=== PATIENT | male | born 1935 | race African-American/Black ===

== ENCOUNTER → 2017-04-01 | Outpatient (CLI) | payer MEDICARE, MEDICAID ==
[~2017-04-01] MED LIST: AMLO10TA80 PO; AMLO5TAB88 PO; ASPI-1159 PO; BARIUM SULFATE 450ML ORAL SUSP ONE; BICA50TA2 PO; CARI350T PO; CLON0.1T PO; FERR-63 PO; FURO20TA4 PO; LORA-249 PO; LOSA25TA12 PO; LOSA50TA20 PO; NORT50CA PO; OMEP20TA2 PO; ONDA4TAB51 PO; OXYC30TA89 PO; SPIR1TAB4 PO; TEMA30CA PO
== END | disposition home or self-care (01) ==
LOC: CT 08:33
PROVIDERS: ATTEND Internal Medicine Hematology & Oncology
DX: C18.2 Malignant neoplasm of ascending colon (principal); C61 Malignant neoplasm of prostate
CPT/HCPCS: 74176

== ENCOUNTER 2017-05-21 16:42 | Inpatient (IN) | payer MEDICARE, MEDICAID ==
[~2017-05-21] VITALS: Ht 167.6 cm; Wt 51.0 kg
[~2017-05-21 16:42] MED LIST changes: -AMLO10TA80 PO; -BARIUM SULFATE 450ML ORAL SUSP ONE; -LOSA50TA20 PO; -SPIR1TAB4 PO
[2017-05-21 19:47] LABS: MEAN CORPUSCULAR HEMOGLOBIN 34.3 pg (28.0-32.0); MEAN CORPUSCULAR VOLUME 102.5 fL (80.0-94.0); MEAN PLATELET VOLUME 7.2 fl (7.4-10.4); PLATELET 221 x1000/uL (130-400); RED BLOOD CELL COUNT 2.05 mill/uL (4.7-6.1); RED CELL DISTRIBUTION WIDTH 13.5 % (11.6-14.6)
[2017-05-21 19:54] LABS: INR 1.1; PROTHROMBIN TIME 11.4 sec (9.4-11.6)
[2017-05-21 20:03] LABS: CARBON DIOXIDE 25 mEq/L (21-32); CHLORIDE 103 mEq/L (98-107); CREATINE KINASE 341 IU/L (39-308); TROPONIN I < 0.02 ng/mL (0.00-0.04)
[2017-05-21 20:04] LABS: CREATINE KINASE MB FRACTION 3.4 ng/mL (0.5-3.6)
[2017-05-21 20:10] LABS: PLATELET ESTIMATE NORMAL
[2017-05-22] VITALS (14 sets, daily range): BP systolic 102–128; BP diastolic 40–56
[2017-05-22] MEDS ORDERED: LOSA50TA20 PO (03:23)
[2017-05-22] MEDS ORDERED: SPIR1TAB4 PO (03:23)
[2017-05-22] MEDS ORDERED: AMLO10TA80 PO (03:23)
[2017-05-22] MEDS ORDERED: DIPHENHYDRAMINE 50MG/ML VIAL IV PRN (03:30)
[2017-05-22] MEDS ORDERED: CLONIDINE 0.1MG TABLET PO PRN (03:30)
[2017-05-22] MEDS ORDERED: IPRATROPIUM/ALBUTEROL 0.5-3(2.5)MG/3ML NEB INH PRN (03:30)
[2017-05-22] MEDS ORDERED: MAGNESIUM/ALUMINUM HYDROXIDE/SIMETHICONE 30ML UDC PO PRN (03:30)
[2017-05-22] MEDS ORDERED: ACETAMINOPHEN 325MG TABLET PO PRN (03:30)
[2017-05-22] MEDS: OXYCODONE HCL 5MG TABLET PO PRN ×2 (04:12→17:29)
[2017-05-22 04:13] LABS: TOTAL IRON BINDING CAPACITY 294 ug/dL (250-450)
[2017-05-22] MEDS: ONDANSETRON HCL 4MG/2ML VIAL IV PRN ×2 (04:14→17:28)
[2017-05-22] MEDS: SODIUM CHLORIDE 0.9% INJ 3ML FLUSH IVF SCH ×3 (04:15→21:02)
[2017-05-22] MEDS: PANTOPRAZOLE SODIUM 40 MG/VIAL IV SCH (09:30)
[2017-05-22] MEDS: CARISOPRODOL 350 MG TABLET PO SCH (09:30)
[2017-05-22 11:39] LABS: HEMATOCRIT 21.9 % (42.0-52.0); HEMOGLOBIN 7.5 g/dL (14.0-18.0)
[2017-05-22] MEDS: BUDESONIDE 0.5MG/2ML NEB HHN SCH (20:12)
[2017-05-22] MEDS: IPRATROPIUM/ALBUTEROL 0.5-3(2.5)MG/3ML NEB HHN SCH (20:12)
[2017-05-22 23:41] LABS: HEMATOCRIT 28.8 % (42.0-52.0); HEMOGLOBIN 9.9 g/dL (14.0-18.0)
[2017-05-23] VITALS: BP 116/56
[2017-05-23] MEDS: IPRATROPIUM/ALBUTEROL 0.5-3(2.5)MG/3ML NEB HHN SCH ×3 (02:48→15:12)
[2017-05-23 04:00] VITALS: BP 117/48
[2017-05-23] MEDS: SODIUM CHLORIDE 0.9% INJ 3ML FLUSH IVF SCH (05:34)
[2017-05-23 08:00] VITALS: BP 137/54
[2017-05-23] MEDS: CARISOPRODOL 350 MG TABLET PO SCH (09:00)
[2017-05-23] MEDS: PANTOPRAZOLE SODIUM 40 MG/VIAL IV SCH (09:06)
[2017-05-23] MEDS: BUDESONIDE 0.5MG/2ML NEB HHN SCH (09:31)
[2017-05-23 12:00] VITALS: BP 109/46
[2017-05-23 12:56] VITALS: BP 109/56
[2017-05-23 14:00] VITALS: BP 117/67
[2017-05-24] MEDS ORDERED: FAMOTIDINE 20MG TABLET PO SCH (09:00)
== END 2017-05-23 16:30 | disposition hospice, home (50) | DRG 180 ==
LOC: ER 16:42 → 7WST 05-22 01:03 → EDBEDREQ 05-22 01:12 → EDBEDREQTM 05-22 01:12 → ENRESERV 05-22 01:19 → 7WST 05-22 03:13
PROVIDERS: ADMIT Internal Medicine; ATTEND Internal Medicine
PROC: 30233N1 Transfusion of Nonautologous Red Blood Cells into Peripheral Vein, Percutaneous Approach (ICD-10-PCS; principal; 2017-05-22)
DX: C78.00 Secondary malignant neoplasm of unspecified lung (principal); J96.01 Acute respiratory failure with hypoxia; N17.9 Acute kidney failure, unspecified; C79.11 Secondary malignant neoplasm of bladder; C79.51 Secondary malignant neoplasm of bone; D50.9 Iron deficiency anemia, unspecified; F17.200 Nicotine dependence, unspecified, uncomplicated; J44.1 Chronic obstructive pulmonary disease with (acute) exacerbation; Z99.81 Dependence on supplemental oxygen; K21.9 Gastro-esophageal reflux disease without esophagitis; E78.00 Pure hypercholesterolemia, unspecified; E78.5 Hyperlipidemia, unspecified; G89.4 Chronic pain syndrome; N18.9 Chronic kidney disease, unspecified; C61 Malignant neoplasm of prostate; I12.9 Hypertensive chronic kidney disease with stage 1 through stage 4 chronic kidney disease, or unspecified chronic kidney disease; N40.0 Benign prostatic hyperplasia without lower urinary tract symptoms; Z66 Do not resuscitate; Z93.3 Colostomy status; Z79.899 Other long term (current) drug therapy; Z79.82 Long term (current) use of aspirin; Z90.79 Acquired absence of other genital organ(s); Z91.19 Patient's noncompliance with other medical treatment and regimen
CPT/HCPCS: 36415; 71010; 76705; 80053; 82270; 82550; 82553; 83540; 83550; 83605; 83880; 84484; 85014; 85018; 85025; 85610; 85730; 86850; 86900; 86920; 87040; 93005; 94640; 94664; 99285; C9113; J2405; J7050; J7620; J7626; P9016

== ENCOUNTER 2017-08-15 12:53 | Inpatient (IN) | payer MEDICARE, MEDICAID ==
[~2017-08-15] VITALS: Ht 167.6 cm; Wt 59.0 kg
[~2017-08-15 12:53] MED LIST changes: +AMLO10TA80 PO; +LOSA50TA20 PO; +SPIR1TAB4 PO
[2017-08-15 14:17] LABS: HEMOGLOBIN. 7.6 g/dL (14.0-18.0); MEAN CORPUSCULAR HEMOGLOBIN 33.7 pg (28.0-32.0); MEAN CORPUSCULAR VOLUME 105.7 fL (80.0-94.0); MEAN PLATELET VOLUME 6.9 fl (7.4-10.4); PLATELET 193 x1000/uL (130-400); RED BLOOD CELL COUNT 2.27 mill/uL (4.7-6.1); RED CELL DISTRIBUTION WIDTH 21.5 % (11.6-14.6)
[2017-08-15 14:19] LABS: CHLORIDE 112 mEq/L (98-107); INR 1.1
[2017-08-15 14:27] LABS: CARBON DIOXIDE 26 mEq/L (21-32)
[2017-08-15 14:39] LABS: NUCLEATED RED BLOOD CELLS 7 /100 WBC; PLATELET ESTIMATE NORMAL
[2017-08-15 17:32] LABS: CLARITY URINE CLEAR (CLEAR); COLOR URINE YELLOW (YELLOW); KETONES URINE NEGATIVE (NEGATIVE); LEUKOCYTE ESTERASE URINE NEGATIVE (NEGATIVE); NITRITE URINE NEGATIVE (NEGATIVE); OCCULT BLOOD URINE NEGATIVE (NEGATIVE); PROTEIN URINE NEGATIVE (NEGATIVE); SPECIFIC GRAVITY URINE 1.018 (1.005-1.030); UROBILINOGEN URINE 0.2 E.U./dL (0.2-1.0)
[2017-08-15] MEDS ORDERED: ACETAMINOPHEN WITH CODEINE 300/30MG TABLET PO ONE (17:45)
[2017-08-15] MEDS ORDERED: LORAZEPAM 2MG/ML CPJ IV PRN (23:15)
[2017-08-15] MEDS ORDERED: ONDANSETRON HCL 4MG/2ML VIAL IV PRN (23:15)
[2017-08-15] MEDS ORDERED: ACETAMINOPHEN 325MG TABLET PO PRN (23:15)
[2017-08-15] MEDS ORDERED: MAGNESIUM/ALUMINUM HYDROXIDE/SIMETHICONE 30ML UDC PO PRN (23:15)
[2017-08-15] MEDS ORDERED: CLONIDINE 0.1MG TABLET PO PRN (23:15)
[2017-08-15] MEDS ORDERED: ONDANSETRON 4MG ODT PO PRN (23:30)
[2017-08-15] MEDS ORDERED: CLONIDINE 0.1MG TABLET PO SCH (23:30)
[2017-08-15] MEDS ORDERED: LORAZEPAM 0.5MG TABLET PO PRN (23:30)
[2017-08-16] MEDS: HYDROCODONE/ACETAMINOPHEN 10/325MG TABLET PO PRN ×3 (01:11→18:26)
[2017-08-16 03:29] VITALS: BP 151/47
[2017-08-16 04:00] VITALS: BP 114/74
[2017-08-16] MEDS: HYDROMORPHONE HCL/PF 2MG/ML CPJ IV PRN ×3 (04:02→14:41)
[2017-08-16 04:32] LABS: *AMPHETAMINES SCREEN URINE NEGATIVE (NEGATIVE); *BARBITURATES SCREEN URINE NEGATIVE (NEGATIVE); *BENZODIAZEPINES SCREEN URINE NEGATIVE (NEGATIVE); *COCAINE SCREEN URINE NEGATIVE (NEGATIVE); CANNABINOID URINE SCREEN NEGATIVE (NEGATIVE); METHADONE URINE SCREEN NEGATIVE (NEGATIVE); OPIATES URINE SCREEN PRESUMTIVE POSITIVE (NEGATIVE); PHENCYCLIDINE URINE SCREEN NEGATIVE (NEGATIVE)
[2017-08-16 06:42] LABS: HEMATOCRIT. 24.4 % (42.0-52.0); HEMOGLOBIN. 7.8 g/dL (14.0-18.0); MEAN CORPUSCULAR HEMOGLOBIN 33.8 pg (28.0-32.0); MEAN CORPUSCULAR VOLUME 105.8 fL (80.0-94.0); MEAN PLATELET VOLUME 6.7 fl (7.4-10.4); PLATELET 208 x1000/uL (130-400); RED BLOOD CELL COUNT 2.31 mill/uL (4.7-6.1); RED CELL DISTRIBUTION WIDTH 21.8 % (11.6-14.6)
[2017-08-16 07:32] LABS: CARBON DIOXIDE 23 mEq/L (21-32)
[2017-08-16 07:55] LABS: CHLORIDE 109 mEq/L (98-107)
[2017-08-16 08:00] VITALS: BP 138/57
[2017-08-16] MEDS ORDERED: INFLUENZA VIRUS VACCINE 0.5ML SYR IM ONE (08:00)
[2017-08-16] MEDS: FERROUS SULFATE 325MG TABLET PO SCH (08:09)
[2017-08-16] MEDS: AMLODIPINE 10MG TABLET PO SCH (08:09)
[2017-08-16] MEDS: LOSARTAN POTASSIUM 50 MG TABLET PO SCH (08:10)
[2017-08-16] MEDS: ASPIRIN 81MG EC TABLET PO SCH (08:10)
[2017-08-16] MEDS ORDERED: PNEUMOCOCCAL 23-VAL P-SAC VAC 0.5 ML IM ONE (09:00)
[2017-08-16] MEDS ORDERED: LOSARTAN POTASSIUM 25 MG TABLET PO SCH (09:00)
[2017-08-16] MEDS ORDERED: AMLODIPINE 5MG TABLET PO SCH (09:00)
[2017-08-16 09:50] LABS: NUCLEATED RED BLOOD CELLS 1 /100 WBC; PLATELET ESTIMATE NORMAL
[2017-08-16 12:00] VITALS: BP 133/80
[2017-08-16] MEDS: BICALUTAMIDE 50 MG TABLET PO SCH (12:20)
[2017-08-16 16:00] VITALS: BP 131/41
[2017-08-16 20:00] VITALS: BP 104/45
[2017-08-16] MEDS: CARISOPRODOL 350 MG TABLET PO SCH (21:52)
[2017-08-17 00:20] VITALS: BP 114/70
[2017-08-17] MEDS: HYDROCODONE/ACETAMINOPHEN 10/325MG TABLET PO PRN ×3 (01:13→18:04)
[2017-08-17 04:05] VITALS: BP 114/48
[2017-08-17 08:23] VITALS: BP 125/54
[2017-08-17] MEDS: ASPIRIN 81MG EC TABLET PO SCH (09:42)
[2017-08-17] MEDS: LOSARTAN POTASSIUM 50 MG TABLET PO SCH (09:42)
[2017-08-17] MEDS: BICALUTAMIDE 50 MG TABLET PO SCH (09:42)
[2017-08-17] MEDS: FERROUS SULFATE 325MG TABLET PO SCH (09:43)
[2017-08-17] MEDS: AMLODIPINE 10MG TABLET PO SCH (09:43)
[2017-08-17 09:47] LABS: HEMATOCRIT. 23.4 % (42.0-52.0); HEMOGLOBIN. 7.3 g/dL (14.0-18.0); MEAN CORPUSCULAR HEMOGLOBIN 33.3 pg (28.0-32.0); MEAN PLATELET VOLUME 6.6 fl (7.4-10.4); PLATELET 185 x1000/uL (130-400); RED CELL DISTRIBUTION WIDTH 20.9 % (11.6-14.6)
[2017-08-17 10:30] LABS: CARBON DIOXIDE 25 mEq/L (21-32); CHLORIDE 107 mEq/L (98-107); PHOSPHORUS 2.9 mg/dL (2.5-4.9); TOTAL IRON BINDING CAPACITY 210 ug/dL (250-450)
[2017-08-17 11:34] LABS: NUCLEATED RED BLOOD CELLS 9 /100 WBC; PLATELET ESTIMATE NORMAL
[2017-08-17 12:29] VITALS: BP 151/55
[2017-08-17 16:18] VITALS: BP 116/65
[2017-08-17] MEDS: FUROSEMIDE 20MG/2ML VIAL IVP SCH (18:00)
[2017-08-17 18:08] LABS: CLARITY URINE CLEAR (CLEAR); COLOR URINE YELLOW (YELLOW); KETONES URINE NEGATIVE (NEGATIVE); LEUKOCYTE ESTERASE URINE NEGATIVE (NEGATIVE); NITRITE URINE NEGATIVE (NEGATIVE); OCCULT BLOOD URINE NEGATIVE (NEGATIVE); PROTEIN URINE NEGATIVE (NEGATIVE); SPECIFIC GRAVITY URINE 1.015 (1.005-1.030); UROBILINOGEN URINE 0.2 E.U./dL (0.2-1.0)
[2017-08-17 20:00] VITALS: BP 93/41
[2017-08-17] MEDS ORDERED: CALCIUM GLUCONATE IV NR ×2 (20:00→21:00)
[2017-08-17] MEDS ORDERED: ALBUMIN HUMAN 25GM/100ML (25%) IV NR (20:00)
[2017-08-17] MEDS ORDERED: SODIUM CHLORIDE 0.9% IV NR ×2 (20:00→21:00)
[2017-08-17] MEDS: CARISOPRODOL 350 MG TABLET PO SCH (22:06)
[2017-08-18] VITALS: BP 103/64
[2017-08-18] MEDS: HYDROCODONE/ACETAMINOPHEN 10/325MG TABLET PO PRN ×4 (00:34→22:37)
[2017-08-18 04:00] VITALS: BP 116/63
[2017-08-18 06:42] LABS: HEMOGLOBIN. 7.3 g/dL (14.0-18.0); MEAN CORPUSCULAR HEMOGLOBIN 33.6 pg (28.0-32.0); MEAN CORPUSCULAR VOLUME 105.7 fL (80.0-94.0); MEAN PLATELET VOLUME 6.5 fl (7.4-10.4); PLATELET 177 x1000/uL (130-400); RED BLOOD CELL COUNT 2.18 mill/uL (4.7-6.1); RED CELL DISTRIBUTION WIDTH 20.6 % (11.6-14.6)
[2017-08-18 07:36] LABS: CARBON DIOXIDE 24 mEq/L (21-32); CHLORIDE 109 mEq/L (98-107)
[2017-08-18] MEDS ORDERED: FUROSEMIDE 40MG/4ML VIAL IVP SCH (08:15)
[2017-08-18 08:24] VITALS: BP 113/46
[2017-08-18] MEDS: FUROSEMIDE 20MG/2ML VIAL IVP SCH (08:24)
[2017-08-18] MEDS: AMLODIPINE 10MG TABLET PO SCH (08:25)
[2017-08-18] MEDS: FERROUS SULFATE 325MG TABLET PO SCH (08:25)
[2017-08-18] MEDS: ASPIRIN 81MG EC TABLET PO SCH (08:25)
[2017-08-18 09:08] LABS: NUCLEATED RED BLOOD CELLS 6 /100 WBC
[2017-08-18 09:09] LABS: PLATELET ESTIMATE NORMAL
[2017-08-18] MEDS ORDERED: SODIUM BICARBONATE 8.4% 1 MEQ/ML 50ML SYR IV SCH (10:00)
[2017-08-18] MEDS: BICALUTAMIDE 50 MG TABLET PO SCH (11:02)
[2017-08-18 12:26] LABS: CARBON DIOXIDE 28 mEq/L (21-32); CHLORIDE 109 mEq/L (98-107)
[2017-08-18 12:28] VITALS: BP 126/57
[2017-08-18] MEDS ORDERED: ENZA40CA PO (12:42)
[2017-08-18] MEDS ORDERED: SODIUM (12:46)
[2017-08-18 16:41] VITALS: BP 129/47
[2017-08-18 20:00] VITALS: BP 154/53
[2017-08-18] MEDS: CARISOPRODOL 350 MG TABLET PO SCH (20:15)
[2017-08-19] VITALS (11 sets, daily range): BP systolic 122–172; BP diastolic 46–66
[2017-08-19] MEDS: HYDROCODONE/ACETAMINOPHEN 10/325MG TABLET PO PRN ×3 (03:03→15:47)
[2017-08-19 07:22] LABS: MEAN CORPUSCULAR HEMOGLOBIN 33.7 pg (28.0-32.0); MEAN CORPUSCULAR VOLUME 105.1 fL (80.0-94.0); MEAN PLATELET VOLUME 6.8 fl (7.4-10.4); PLATELET 189 x1000/uL (130-400); RED BLOOD CELL COUNT 2.06 mill/uL (4.7-6.1); RED CELL DISTRIBUTION WIDTH 21.3 % (11.6-14.6)
[2017-08-19 07:41] LABS: CARBON DIOXIDE 27 mEq/L (21-32); CHLORIDE 108 mEq/L (98-107)
[2017-08-19 08:24] LABS: HEMATOCRIT. 21.7 % (42.0-52.0)
[2017-08-19] MEDS: AMLODIPINE 10MG TABLET PO SCH (09:00)
[2017-08-19] MEDS: ASPIRIN 81MG EC TABLET PO SCH (09:10)
[2017-08-19] MEDS: FUROSEMIDE 20MG/2ML VIAL IVP SCH (09:10)
[2017-08-19] MEDS: FERROUS SULFATE 325MG TABLET PO SCH (09:10)
[2017-08-19 11:57] LABS: NUCLEATED RED BLOOD CELLS 4 /100 WBC
[2017-08-19 11:58] LABS: PLATELET ESTIMATE NORMAL
[2017-08-19] MEDS: BICALUTAMIDE 50 MG TABLET PO SCH (14:40)
[2017-08-19 19:05] LABS: HEMATOCRIT 27.7 % (42.0-52.0)
== END 2017-08-19 20:05 | disposition home health service (06) | DRG 542 ==
LOC: ER 13:40 → 6WST 17:59 → EDBEDREQ 23:23 → ENRESERV 23:26
PROVIDERS: ADMIT Internal Medicine; ATTEND Internal Medicine
PROC: 30233N1 Transfusion of Nonautologous Red Blood Cells into Peripheral Vein, Percutaneous Approach (ICD-10-PCS; principal; 2017-08-19)
DX: C79.52 Secondary malignant neoplasm of bone marrow (principal); E43 Unspecified severe protein-calorie malnutrition; N17.0 Acute kidney failure with tubular necrosis; C78.00 Secondary malignant neoplasm of unspecified lung; E11.22 Type 2 diabetes mellitus with diabetic chronic kidney disease; C79.11 Secondary malignant neoplasm of bladder; E83.51 Hypocalcemia; C61 Malignant neoplasm of prostate; E87.5 Hyperkalemia; F11.20 Opioid dependence, uncomplicated; J44.1 Chronic obstructive pulmonary disease with (acute) exacerbation; K61.0 Anal abscess; I50.30 Unspecified diastolic (congestive) heart failure; I13.0 Hypertensive heart and chronic kidney disease with heart failure and stage 1 through stage 4 chronic kidney disease, or unspecified chronic kidney disease; N18.3 Chronic kidney disease, stage 3 (moderate); D63.8 Anemia in other chronic diseases classified elsewhere; G47.00 Insomnia, unspecified; E78.5 Hyperlipidemia, unspecified; F41.1 Generalized anxiety disorder; G89.29 Other chronic pain; Z51.5 Encounter for palliative care; Z79.82 Long term (current) use of aspirin; Z87.891 Personal history of nicotine dependence; Z93.3 Colostomy status; Z90.79 Acquired absence of other genital organ(s); Z99.81 Dependence on supplemental oxygen; Z72.89 Other problems related to lifestyle; Z68.21 Body mass index [BMI] 21.0-21.9, adult
CPT/HCPCS: 36415; 71045; 80048; 80053; 80069; 80076; 80305; 81003; 82040; 82962; 83540; 83550; 83735; 84100; 84153; 84550; 85014; 85018; 85025; 85610; 86850; 86900; 86920; 90686; 90732; 93005; 93970; 96374; 99285; J0610; J1170; J1940; J3490; J7050; J7060; P9016; P9047

== ENCOUNTER 2018-07-22 11:10 | Emergency (ER) | payer MEDICARE, MEDICAID ==
[~2018-07-22] VITALS: Ht 167.6 cm; Wt 60.0 kg
[~2018-07-22 11:10] MED LIST changes: +AMLO10TA80 MT; -AMLO10TA80 PO; -AMLO5TAB88 PO; -ASPI-1159 PO; -BICA50TA2 PO; -CARI350T PO; -CLON0.1T PO; +ENZA40CA PO; -FERR-63 PO; -FURO20TA4 PO; -LORA-249 PO; -LOSA25TA12 PO; -LOSA50TA20 PO; -NORT50CA PO; +ONDA4TAB5 PO; -ONDA4TAB51 PO; -OXYC30TA89 PO; -SPIR1TAB4 PO; -TEMA30CA PO
[2018-07-22] MEDS ORDERED: SODIUM CHLORIDE 0.9% 1,000 ML IV ONE (11:41)
[2018-07-22 13:09] LABS: BASOPHILS % 0.4 % (0.0-2.0); EOSINOPHILS % 1.7 % (0.0-5.0); HEMATOCRIT. 33.7 % (42.0-52.0); HEMOGLOBIN. 10.9 g/dL (14.0-18.0); LYMPHOCYTES % 33.1 % (20.0-50.0); MEAN CORPUSCULAR HEMOGLOBIN 33.1 pg (28.0-32.0); MEAN CORPUSCULAR VOLUME 102.3 fL (80.0-94.0); MEAN PLATELET VOLUME 8.5 fl (7.4-10.4); MONOCYTES % 10.3 % (2.0-8.0); NEUTROPHILS % 54.5 % (40.0-76.0); PLATELET 205 x1000/uL (130-400); RED CELL DISTRIBUTION WIDTH 16.6 % (11.6-14.6)
[2018-07-22 13:16] LABS: CHLORIDE 105 mEq/L (98-107)
[2018-07-22 13:17] LABS: PROTHROMBIN TIME 10.1 sec (9.1-11.1)
[2018-07-22] MEDS ORDERED: MORPHINE SULFATE 4 MG/ML CPJ (NOT FOR IM USE) IV ONE (14:00)
[2018-07-22 18:18] VITALS: BP 127/84
== END 2018-07-22 18:24 | disposition home or self-care (01) ==
LOC: ER 12:23 → CANBEDREQ 19:03
DX: K94.01 Colostomy hemorrhage (principal); J44.9 Chronic obstructive pulmonary disease, unspecified; I12.9 Hypertensive chronic kidney disease with stage 1 through stage 4 chronic kidney disease, or unspecified chronic kidney disease; E11.22 Type 2 diabetes mellitus with diabetic chronic kidney disease; N18.9 Chronic kidney disease, unspecified; Z85.46 Personal history of malignant neoplasm of prostate; Z85.038 Personal history of other malignant neoplasm of large intestine
CPT/HCPCS: 36415; 71045; 74176; 80053; 83605; 84484; 85025; 85610; 86850; 86900; 86901; 93005; 96374; 99284; J2270; J7030

== ENCOUNTER 2018-09-24 12:36 | Inpatient (IN) | payer MEDICARE, MEDICAID ==
[~2018-09-24] VITALS: Ht 167.6 cm; Wt 855.9 kg
[2018-09-24] MEDS ORDERED: SODIUM CHLORIDE 0.9% 1000ML BAG (SEPSIS BOLUS) IV ONE (14:30)
[2018-09-24] MEDS ORDERED: LEVOFLOXACIN 750MG PREMIX 150 ML IV ONE (14:30)
[2018-09-24 15:40] LABS: BASOPHILS % 0.2 % (0.0-2.0); EOSINOPHILS % 0.7 % (0.0-5.0); HEMATOCRIT. 33.4 % (42.0-52.0); LYMPHOCYTES % 21.4 % (20.0-50.0); MEAN CORPUSCULAR HEMOGLOBIN 33.9 pg (28.0-32.0); MEAN CORPUSCULAR VOLUME 103.3 fL (80.0-94.0); MEAN PLATELET VOLUME 8.6 fl (7.4-10.4); MONOCYTES % 11.7 % (2.0-8.0); PLATELET 207 x1000/uL (130-400); RED BLOOD CELL COUNT 3.24 mill/uL (4.7-6.1); RED CELL DISTRIBUTION WIDTH 14.8 % (11.6-14.6)
[2018-09-24 15:42] LABS: CHLORIDE 105 mEq/L (98-107)
[2018-09-24 15:44] LABS: PARTIAL THROMBOPLASTIN TIME 28.1 sec (23.4-31.0); PROTHROMBIN TIME 10.4 sec (9.1-11.1)
[2018-09-24] MEDS ORDERED: SODIUM BICARBONATE 8.4% 1 MEQ/ML 50ML SYR IV ONE (16:15)
[2018-09-24] MEDS ORDERED: SODIUM POLYSTYRENE SULFONATE 15 G/60 ML BOT PO ONE (16:15)
[2018-09-24] MEDS ORDERED: ALBUTEROL (0.083%) 2.5MG/3ML NEB HHN ONE (16:15)
[2018-09-24] MEDS ORDERED: ASPIRIN 81MG TABLET PO ONE (16:45)
[2018-09-24 17:03] LABS: CLARITY URINE CLEAR (CLEAR); COLOR URINE YELLOW (YELLOW); KETONES URINE NEGATIVE (NEGATIVE); LEUKOCYTE ESTERASE URINE NEGATIVE (NEGATIVE); NITRITE URINE NEGATIVE (NEGATIVE); OCCULT BLOOD URINE NEGATIVE (NEGATIVE); PROTEIN URINE NEGATIVE (NEGATIVE); SPECIFIC GRAVITY URINE 1.016 (1.005-1.030); UROBILINOGEN URINE 0.2 E.U./dL (0.2-1.0)
[2018-09-24 23:00] VITALS: BP 122/52
[2018-09-25] MEDS ORDERED: DIPHENHYDRAMINE 50MG/ML VIAL IV PRN (00:30)
[2018-09-25] MEDS ORDERED: ONDANSETRON HCL 4MG/2ML INJ IV PRN (00:30)
[2018-09-25] MEDS ORDERED: ACETAMINOPHEN 325MG TABLET PO PRN (00:30)
[2018-09-25] MEDS: OXYCODONE HCL 5MG TABLET PO PRN ×3 (01:44→22:23)
[2018-09-25] MEDS: DEXT 5%/0.45% NACL 1000ML 1,000 ML IV SCH ×2 (01:45→17:35)
[2018-09-25] MEDS: IPRATROPIUM/ALBUTEROL 0.5-3(2.5)MG/3ML NEB HHN PRN ×2 (03:04→08:24)
[2018-09-25 04:00] VITALS: BP 121/43
[2018-09-25 06:47] LABS: BASOPHILS % 0.2 % (0.0-2.0); EOSINOPHILS % 1.4 % (0.0-5.0); HEMATOCRIT. 30.5 % (42.0-52.0); HEMOGLOBIN. 10.1 g/dL (14.0-18.0); MEAN CORPUSCULAR HEMOGLOBIN 34.3 pg (28.0-32.0); MEAN CORPUSCULAR VOLUME 103.8 fL (80.0-94.0); MEAN PLATELET VOLUME 8.5 fl (7.4-10.4); MONOCYTES % 10.2 % (2.0-8.0); NEUTROPHILS % 57.2 % (40.0-76.0); PLATELET 167 x1000/uL (130-400); RED BLOOD CELL COUNT 2.94 mill/uL (4.7-6.1); RED CELL DISTRIBUTION WIDTH 14.5 % (11.6-14.6)
[2018-09-25 06:57] LABS: CHLORIDE 109 mEq/L (98-107)
[2018-09-25 07:09] LABS: HDL CHOLESTEROL 53 mg/dL (40-59)
[2018-09-25 07:11] LABS: LDL CHOLESTEROL 114 mg/dL (5-100)
[2018-09-25 07:23] LABS: CREATINE KINASE 3437 IU/L (39-308)
[2018-09-25 07:28] LABS: CREATINE KINASE MB FRACTION 32.8 ng/mL (0.5-3.6); TOTAL IRON BINDING CAPACITY 292 ug/dL (250-450)
[2018-09-25 08:00] VITALS: BP 142/60
[2018-09-25] MEDS: DOCUSATE SODIUM 100MG CAPSULE PO SCH (08:59)
[2018-09-25] MEDS: CETIRIZINE 10MG TABLET PO SCH (11:52)
[2018-09-25 12:00] VITALS: BP 135/61
[2018-09-25 12:28] LABS: CREATINE KINASE MB FRACTION 33.7 ng/mL (0.5-3.6)
[2018-09-25] MEDS ORDERED: IPRATROPIUM/ALBUTEROL 0.5-3(2.5)MG/3ML NEB HHN SCH (12:30)
[2018-09-25] MEDS: FLUTICASONE PROPIONATE 50MCG/SPRAY BOTTLE BOTHNSTRLS SCH ×2 (13:04→22:23)
[2018-09-25 16:35] VITALS: BP 156/35
[2018-09-25 20:00] VITALS: BP 141/53
[2018-09-25] MEDS: ATORVASTATIN CALCIUM 10MG TABLET PO SCH (22:24)
[2018-09-26] VITALS: BP 156/56
[2018-09-26 04:00] VITALS: BP 185/51
[2018-09-26 05:00] VITALS: BP 157/72
[2018-09-26] MEDS: DEXT 5%/0.45% NACL 1000ML 1,000 ML IV SCH ×2 (06:27→17:01)
[2018-09-26] MEDS: DOCUSATE SODIUM 100MG CAPSULE PO SCH (09:00)
[2018-09-26] MEDS: OXYCODONE HCL 5MG TABLET PO PRN ×2 (09:19→17:36)
[2018-09-26] MEDS: CETIRIZINE 10MG TABLET PO SCH (09:20)
[2018-09-26] MEDS: FLUTICASONE PROPIONATE 50MCG/SPRAY BOTTLE BOTHNSTRLS SCH ×2 (09:21→21:46)
[2018-09-26 12:00] VITALS: BP 154/54
[2018-09-26 16:00] VITALS: BP 150/54
[2018-09-26 20:00] VITALS: BP 126/76
[2018-09-26] MEDS: ATORVASTATIN CALCIUM 10MG TABLET PO SCH (21:46)
[2018-09-27] VITALS: BP 152/53
[2018-09-27] MEDS: OXYCODONE HCL 5MG TABLET PO PRN (01:54)
[2018-09-27 04:00] VITALS: BP 151/42
[2018-09-27 04:42] VITALS: BP 151/42
[2018-09-27 08:00] VITALS: BP 153/47
[2018-09-27] MEDS: DOCUSATE SODIUM 100MG CAPSULE PO SCH (10:25)
[2018-09-27] MEDS: CETIRIZINE 10MG TABLET PO SCH (10:25)
[2018-09-27] MEDS: FLUTICASONE PROPIONATE 50MCG/SPRAY BOTTLE BOTHNSTRLS SCH (10:25)
[2018-09-27 12:00] VITALS: BP 154/44
[2018-09-27 14:09] VITALS: BP 154/44
== END 2018-09-27 16:28 | disposition home health service (06) | DRG 871 ==
LOC: ER 15:24 → 8WST 16:29 → ENRESERV 21:05
PROVIDERS: ADMIT Internal Medicine; ATTEND Internal Medicine
DX: A41.9 Sepsis, unspecified organism (principal); G92 Toxic encephalopathy; N17.9 Acute kidney failure, unspecified; C79.51 Secondary malignant neoplasm of bone; R07.9 Chest pain, unspecified; E86.0 Dehydration; C61 Malignant neoplasm of prostate; E87.5 Hyperkalemia; R65.20 Severe sepsis without septic shock; E11.9 Type 2 diabetes mellitus without complications; E78.5 Hyperlipidemia, unspecified; I10 Essential (primary) hypertension; Z90.49 Acquired absence of other specified parts of digestive tract; Z93.3 Colostomy status; Z79.899 Other long term (current) drug therapy; G89.3 Neoplasm related pain (acute) (chronic)
CPT/HCPCS: 36415; 71045; 78582; 80061; 80076; 82248; 82550; 82553; 83540; 83550; 83605; 83735; 84100; 84145; 84153; 84439; 84443; 84481; 84484; 84550; 85651; 93005; 93970; 94644; 96365; 96375; 99285; A9558; C1893; J1956; J3490; J7030; J7611; J7620; G0103

== ENCOUNTER 2019-03-09 13:35 | Emergency (ER) | payer MEDICARE, MEDICAID ==
[~2019-03-09] VITALS: Ht 165.1 cm; Wt 61.0 kg
[2019-03-09 18:40] VITALS: BP 203/62
== END 2019-03-09 20:00 | disposition left against medical advice (07) ==
LOC: ER 13:35
DX: Z53.21 Procedure and treatment not carried out due to patient leaving prior to being seen by health care provider (principal); E11.9 Type 2 diabetes mellitus without complications; Z93.3 Colostomy status; Z85.9 Personal history of malignant neoplasm, unspecified

== ENCOUNTER 2019-03-10 13:00 | Emergency (ER) | payer MEDICARE, MEDICAID ==
[~2019-03-10] VITALS: Ht 167.6 cm; Wt 70.0 kg
[2019-03-10] MEDS ORDERED: HYDROCODONE/ACETAMINOPHEN 5/325MG TABLET PO STA (15:41)
[2019-03-10 16:27] LABS: BASOPHILS % 0.5 % (0.0-2.0); HEMATOCRIT. 31.9 % (42.0-52.0); HEMOGLOBIN. 10.8 g/dL (14.0-18.0); LYMPHOCYTES % 35.5 % (20.0-50.0); MEAN CORPUSCULAR HEMOGLOBIN 35.2 pg (28.0-32.0); MEAN CORPUSCULAR VOLUME 103.7 fL (80.0-94.0); MEAN PLATELET VOLUME 7.4 fl (7.4-10.4); MONOCYTES % 8.9 % (2.0-8.0); NEUTROPHILS % 53.1 % (40.0-76.0); PLATELET 195 x1000/uL (130-400); RED BLOOD CELL COUNT 3.07 mill/uL (4.7-6.1); RED CELL DISTRIBUTION WIDTH 14.8 % (11.6-14.6)
[2019-03-10 16:28] LABS: CHLORIDE 109 mEq/L (98-107)
[2019-03-10 16:41] LABS: PROTHROMBIN TIME 10.4 sec (9.6-11.0)
[2019-03-10 17:30] VITALS: BP 194/62
== END 2019-03-10 17:36 | disposition home or self-care (01) ==
LOC: ER 13:00
DX: C79.9 Secondary malignant neoplasm of unspecified site (principal); S46.911A Strain of unspecified muscle, fascia and tendon at shoulder and upper arm level, right arm, initial encounter; S70.02XA Contusion of left hip, initial encounter; J44.9 Chronic obstructive pulmonary disease, unspecified; W01.0XXA Fall on same level from slipping, tripping and stumbling without subsequent striking against object, initial encounter; Y93.89 Activity, other specified; Y92.9 Unspecified place or not applicable; Z93.3 Colostomy status; Z85.46 Personal history of malignant neoplasm of prostate; Z85.038 Personal history of other malignant neoplasm of large intestine; Z87.891 Personal history of nicotine dependence
CPT/HCPCS: 36415; 71045; 73030; 73502; 73610; 99284

== ENCOUNTER 2019-04-17 12:39 | Emergency (ER) | payer MEDICARE, MEDICAID ==
[~2019-04-17] VITALS: Ht 170.2 cm; Wt 62.0 kg
[2019-04-17] MEDS ORDERED: ONDANSETRON HCL 4MG/2ML INJ IV STA (13:02)
[2019-04-17] MEDS ORDERED: SODIUM CHLORIDE 0.9% 1,000 ML IV ONE (13:02)
[2019-04-17] MEDS ORDERED: KETOROLAC 30MG/ML VIAL IV ONE (13:15)
[2019-04-17 13:48] LABS: BASOPHILS % 0.5 % (0.0-2.0); EOSINOPHILS % 2.2 % (0.0-5.0); HEMOGLOBIN. 12.5 g/dL (14.0-18.0); LYMPHOCYTES % 31.7 % (20.0-50.0); MEAN CORPUSCULAR HEMOGLOBIN 34.8 pg (28.0-32.0); MEAN CORPUSCULAR VOLUME 105.7 fL (80.0-94.0); MEAN PLATELET VOLUME 8.3 fl (7.4-10.4); MONOCYTES % 6.9 % (2.0-8.0); NEUTROPHILS % 58.7 % (40.0-76.0); PLATELET 211 x1000/uL (130-400); RED BLOOD CELL COUNT 3.59 mill/uL (4.7-6.1); RED CELL DISTRIBUTION WIDTH 14.3 % (11.6-14.6)
[2019-04-17 13:53] LABS: CHLORIDE 105 mEq/L (98-107)
[2019-04-17 13:55] LABS: PROTHROMBIN TIME 10.3 sec (9.6-11.0)
[2019-04-17 15:08] LABS: CLARITY URINE CLEAR (CLEAR); COLOR URINE YELLOW (YELLOW); KETONES URINE NEGATIVE (NEGATIVE); LEUKOCYTE ESTERASE URINE NEGATIVE (NEGATIVE); NITRITE URINE NEGATIVE (NEGATIVE); OCCULT BLOOD URINE NEGATIVE (NEGATIVE); PH URINE 5.5 (4.5-8.0); PROTEIN URINE NEGATIVE (NEGATIVE); SPECIFIC GRAVITY URINE 1.019 (1.005-1.030); UROBILINOGEN URINE 0.2 E.U./dL (0.2-1.0)
[2019-04-17 15:55] VITALS: BP 140/62
== END 2019-04-17 15:57 | disposition home or self-care (01) ==
LOC: ER 14:20
DX: R10.84 Generalized abdominal pain (principal); R11.2 Nausea with vomiting, unspecified; I11.0 Hypertensive heart disease with heart failure; I50.9 Heart failure, unspecified; J44.9 Chronic obstructive pulmonary disease, unspecified; Z93.3 Colostomy status; Z79.899 Other long term (current) drug therapy
CPT/HCPCS: 36415; 74176; 80053; 81003; 83690; 85025; 85610; 96361; 96374; 96375; 99284; J1885; J2405; J7030

== ENCOUNTER 2019-05-17 12:18 | Emergency (ER) | payer MEDICARE, MEDICAID ==
[~2019-05-17] VITALS: Ht 167.6 cm; Wt 64.0 kg
[2019-05-17] MEDS ORDERED: ONDANSETRON HCL 4MG/2ML INJ IV ONE (13:45)
[2019-05-17] MEDS ORDERED: HYDROMORPHONE HCL/PF 2MG/ML CPJ IV ONE (13:45)
[2019-05-17 13:52] LABS: BASOPHILS % 0.7 % (0.0-2.0); CHLORIDE 106 mEq/L (98-107); EOSINOPHILS % 2.5 % (0.0-5.0); HEMATOCRIT. 33.2 % (42.0-52.0); LYMPHOCYTES % 25.4 % (20.0-50.0); MEAN CORPUSCULAR HEMOGLOBIN 34.7 pg (28.0-32.0); MEAN CORPUSCULAR VOLUME 104.5 fL (80.0-94.0); MEAN PLATELET VOLUME 8.8 fl (7.4-10.4); MONOCYTES % 8.6 % (2.0-8.0); NEUTROPHILS % 62.8 % (40.0-76.0); PLATELET 181 x1000/uL (130-400); RED BLOOD CELL COUNT 3.17 mill/uL (4.7-6.1); RED CELL DISTRIBUTION WIDTH 13.8 % (11.6-14.6)
[2019-05-17 18:28] VITALS: BP 144/54
== END 2019-05-17 18:30 | disposition home or self-care (01) ==
LOC: ER 12:18
DX: R10.9 Unspecified abdominal pain (principal); R42 Dizziness and giddiness; I11.0 Hypertensive heart disease with heart failure; I50.9 Heart failure, unspecified; Z93.3 Colostomy status; Z85.46 Personal history of malignant neoplasm of prostate; Z79.899 Other long term (current) drug therapy
CPT/HCPCS: 36415; 70450; 71045; 72125; 74176; 80053; 83880; 84484; 85025; 93005; 96374; 96375; 99284; J1170; J2405

== ENCOUNTER 2019-09-19 13:11 | Inpatient (IN) | payer MEDICARE, MEDICAID ==
[~2019-09-19] VITALS: Ht 168.9 cm; Wt 62.6 kg
[2019-09-19] MEDS ORDERED: MORPHINE SULFATE 4 MG/ML CPJ (NOT FOR IM USE) IV STA (14:57)
[2019-09-19 15:21] LABS: BASOPHILS % 0.5 % (0.0-2.0); EOSINOPHILS % 1.7 % (0.0-5.0); HEMATOCRIT. 31.2 % (42.0-52.0); HEMOGLOBIN. 10.6 g/dL (14.0-18.0); MEAN CORPUSCULAR HEMOGLOBIN 35.5 pg (28.0-32.0); MEAN CORPUSCULAR VOLUME 104.1 fL (80.0-94.0); MEAN PLATELET VOLUME 8.5 fl (7.4-10.4); MONOCYTES % 8.6 % (2.0-8.0); NEUTROPHILS % 61.2 % (40.0-76.0); PLATELET 187 x1000/uL (130-400); RED BLOOD CELL COUNT 2.99 mill/uL (4.7-6.1); RED CELL DISTRIBUTION WIDTH 13.5 % (11.6-14.6)
[2019-09-19 15:28] LABS: CHLORIDE 104 mEq/L (98-107)
[2019-09-19 16:50] LABS: CLARITY URINE CLEAR (CLEAR); COLOR URINE YELLOW (YELLOW); KETONES URINE NEGATIVE (NEGATIVE); LEUKOCYTE ESTERASE URINE NEGATIVE (NEGATIVE); NITRITE URINE NEGATIVE (NEGATIVE); OCCULT BLOOD URINE NEGATIVE (NEGATIVE); PROTEIN URINE NEGATIVE (NEGATIVE); SPECIFIC GRAVITY URINE 1.016 (1.005-1.030); UROBILINOGEN URINE 0.2 E.U./dL (0.2-1.0)
[2019-09-19] MEDS ORDERED: IPRATROPIUM/ALBUTEROL 0.5-3(2.5)MG/3ML NEB HHN PRN (21:00)
[2019-09-19] MEDS ORDERED: ACETAMINOPHEN 325MG TABLET PO PRN (21:00)
[2019-09-19] MEDS ORDERED: DIPHENHYDRAMINE 50MG/ML VIAL IV PRN (21:00)
[2019-09-19] MEDS ORDERED: ZOLPIDEM TARTRATE 5MG TABLET PO PRN (21:00)
[2019-09-19] MEDS ORDERED: ONDANSETRON HCL 4MG/2ML INJ IV PRN (21:00)
[2019-09-19 22:30] VITALS: BP 145/62
[2019-09-19] MEDS: HYDROCODONE/APAP 7.5/325MG 1 TAB TABLET PO PRN (22:53)
[2019-09-19] MEDS ORDERED: ENOXAPARIN 40MG/0.4ML SYR SUBCUT SCH (23:00)
[2019-09-19] MEDS ORDERED: CALC0.253 (23:58)
[2019-09-19] MEDS ORDERED: DONE10TA43 (23:58)
[2019-09-19] MEDS ORDERED: CALC-25 (23:58)
[2019-09-19] MEDS ORDERED: ONDA4TAB50 (23:58)
[2019-09-19] MEDS ORDERED: GABA-529 (23:58)
[2019-09-19] MEDS ORDERED: CARV12.545 (23:58)
[2019-09-19] MEDS ORDERED: DULO60CA64 (23:58)
[2019-09-19] MEDS ORDERED: OXYC30TA89 (23:58)
[2019-09-19] MEDS ORDERED: OMEP20CA14 (23:58)
[2019-09-20] MEDS: SODIUM CHLORIDE 0.9% INJ 3ML FLUSH IVF SCH ×3 (06:02→22:00)
[2019-09-20] MEDS: HYDROCODONE/APAP 7.5/325MG 1 TAB TABLET PO PRN ×2 (08:06→14:20)
[2019-09-20] MEDS: ENOXAPARIN 40MG/0.4ML SYR SUBCUT SCH (08:07)
[2019-09-20] MEDS ORDERED: INFLUENZA VIRUS VACCINE(AFLURIA) 0.5ML SYR IM ONE (12:00)
[2019-09-20] MEDS ORDERED: ALBU4TAB6 MT (12:34)
[2019-09-20 20:00] VITALS: BP 148/53
[2019-09-21] VITALS: BP 167/70
[2019-09-21] MEDS: HYDROCODONE/APAP 7.5/325MG 1 TAB TABLET PO PRN (03:59)
[2019-09-21 04:00] VITALS: BP 157/97
[2019-09-21] MEDS: CLONIDINE 0.1MG TABLET PO PRN (04:01)
[2019-09-21] MEDS: SODIUM CHLORIDE 0.9% INJ 3ML FLUSH IVF SCH ×3 (06:00→22:00)
[2019-09-21 08:00] VITALS: BP 128/53
[2019-09-21] MEDS: ENOXAPARIN 40MG/0.4ML SYR SUBCUT SCH (09:17)
[2019-09-21 12:00] VITALS: BP 128/64
[2019-09-21 16:00] VITALS: BP 138/65
[2019-09-21 16:46] LABS: PROTHROMBIN TIME 10.8 sec (9.6-11.0)
[2019-09-21] MEDS: MORPHINE SULFATE 2 MG/ML CPJ (NOT FOR IM USE) IV PRN (17:33)
[2019-09-21] MEDS: DEXAMETHASONE 4MG/ML 1ML VIAL IV SCH (17:34)
[2019-09-21 20:00] VITALS: BP 100/52
[2019-09-22] VITALS (41 sets, daily range): BP systolic 94–195; BP diastolic -1–107
[2019-09-22] MEDS: DEXAMETHASONE 4MG/ML 1ML VIAL IV SCH ×4 (00:01→19:00)
[2019-09-22] MEDS: HYDROCODONE/APAP 7.5/325MG 1 TAB TABLET PO PRN (05:56)
[2019-09-22] MEDS: SODIUM CHLORIDE 0.9% INJ 3ML FLUSH IVF SCH ×3 (06:00→21:25)
[2019-09-22] MEDS ORDERED: BACITRACIN 15GM TUBE TOP ONE (10:58)
[2019-09-22] MEDS ORDERED: LIDOCAINE HCL/EPINEPHRINE 1%-EPI 1:100,000 20 ML VIAL ONE (10:58)
[2019-09-22] MEDS ORDERED: THROMBIN (BOVINE) 5000 UNITS/VIAL TOP ONE (10:58)
[2019-09-22] MEDS ORDERED: BACITRACIN 50,000 UNITS/VIAL ONE (10:59)
[2019-09-22] MEDS: MORPHINE SULFATE 2 MG/ML CPJ (NOT FOR IM USE) IV PRN ×4 (12:09→23:11)
[2019-09-22] MEDS ORDERED: PROPOFOL 200MG/20ML VIAL IV ONE ×2 (12:56→14:14)
[2019-09-22] MEDS ORDERED: FENTANYL CITRATE/PF 50MCG/ML 2ML VIAL ONE ×2 (12:56→13:29)
[2019-09-22] MEDS ORDERED: NEOSTIGMINE METHYLSULFATE 1MG/ML 10 ML VIAL ONE (12:56)
[2019-09-22] MEDS ORDERED: ROCURONIUM BROMIDE 10MG/ML VIAL 5ML IV ONE (12:56)
[2019-09-22] MEDS ORDERED: GLYCOPYRROLATE 0.2 MG/ML 2ML VIAL ONE (12:57)
[2019-09-22] MEDS ORDERED: MIDAZOLAM HCL 2 MG/2 ML VIAL ONE (12:57)
[2019-09-22] MEDS ORDERED: DEXAMETHASONE 4MG/ML 1ML VIAL ONE (13:28)
[2019-09-22] MEDS ORDERED: ONDANSETRON HCL 4MG/2ML INJ ONE (13:28)
[2019-09-22] MEDS ORDERED: HYDROMORPHONE HCL/PF 2MG/ML (OR) ONE (13:56)
[2019-09-22] MEDS ORDERED: NICARDIPINE 100 MG in SODIUM CHLORIDE 0.9% 60 ML IV PRN (14:00)
[2019-09-22] MEDS ORDERED: CEFAZOLIN SODIUM 1000MG/VIAL IV SCH (14:00)
[2019-09-22] MEDS: CEFAZOLIN 1000MG PREMIX 50 ML IV SCH (14:30)
[2019-09-22] MEDS: DEXT 5%/LACTATED RINGERS 1,000 ML IV SCH ×2 (16:10→23:00)
[2019-09-22 17:58] LABS: BG BASE EXCESS -3.2 mmol/L (-2.0-2.0); BG CARBOXYHEMOGLOBIN 0.3 % (0.5-1.5); BG DEOXYHEMOGLOBIN 1.1 % (0.0-5.0); BG FRACTION INSPIRED OXYGEN 50; BG HCO3 ACT 23.1 mmol/L (22.0-26.0); BG METHEMOGLOBIN 0.4 % (0.0-1.5); BG OXYGEN SATURATION 98.9 % (92.0-98.5); BG OXYHEMOGLOBIN 98.2 % (94.0-97.0); BG PCO2 46.9 mmHg (35.0-45.0); BG PH 7.311 (7.350-7.450); BG PO2 176.9 mmHg (75.0-100.0); BG PRESSURE SUPPORT 10; BG SAMPLE SITE A-LINE; BG TIDAL VOLUME(mL) 550 mL; BG TOTAL HEMOGLOBIN 11.1 g/dL (12.0-18.0); BG VENT MODE VENT - SIMV; BG VENT RATE 10 set
[2019-09-22 20:42] LABS: BG BASE EXCESS -4.3 mmol/L (-2.0-2.0); BG CARBOXYHEMOGLOBIN 0.3 % (0.5-1.5); BG DEOXYHEMOGLOBIN 1.3 % (0.0-5.0); BG FRACTION INSPIRED OXYGEN 50; BG HCO3 ACT 21.2 mmol/L (22.0-26.0); BG METHEMOGLOBIN 0.1 % (0.0-1.5); BG OXYGEN SATURATION 98.7 % (92.0-98.5); BG OXYHEMOGLOBIN 98.3 % (94.0-97.0); BG PCO2 40.5 mmHg (35.0-45.0); BG PH 7.337 (7.350-7.450); BG PO2 175.1 mmHg (75.0-100.0); BG PRESSURE SUPPORT 8; BG SAMPLE SITE A-LINE; BG TOTAL HEMOGLOBIN 11.5 g/dL (12.0-18.0); BG VENT MODE VENT - CPAP
[2019-09-23] VITALS (70 sets, daily range): BP systolic 59–169; BP diastolic 22–123
[2019-09-23] MEDS: CEFAZOLIN 1000MG PREMIX 50 ML IV SCH ×4 (00:26→21:48)
[2019-09-23] MEDS: DEXAMETHASONE 4MG/ML 1ML VIAL IV SCH ×4 (00:27→17:10)
[2019-09-23] MEDS: MORPHINE SULFATE 2 MG/ML CPJ (NOT FOR IM USE) IV PRN ×4 (02:58→12:58)
[2019-09-23] MEDS: SODIUM CHLORIDE 0.9% INJ 3ML FLUSH IVF SCH ×3 (05:07→21:50)
[2019-09-23 06:07] LABS: HEMATOCRIT. 26.8 % (42.0-52.0); HEMOGLOBIN. 9.2 g/dL (14.0-18.0); MEAN CORPUSCULAR HEMOGLOBIN 35.5 pg (28.0-32.0); MEAN CORPUSCULAR VOLUME 103.9 fL (80.0-94.0); MEAN PLATELET VOLUME 9.1 fl (7.4-10.4); PLATELET 172 x1000/uL (130-400); RED BLOOD CELL COUNT 2.58 mill/uL (4.7-6.1); RED CELL DISTRIBUTION WIDTH 13.1 % (11.6-14.6)
[2019-09-23 06:08] LABS: CHLORIDE 102 mEq/L (98-107)
[2019-09-23 07:23] LABS: PLATELET ESTIMATE NORMAL
[2019-09-23] MEDS: DEXT 5%/LACTATED RINGERS 1,000 ML IV SCH (08:41)
[2019-09-23] MEDS: MORPHINE SULFATE 4 MG/ML CPJ (NOT FOR IM USE) IV PRN ×3 (14:58→21:45)
[2019-09-23] MEDS ORDERED: BUDESONIDE 0.5MG/2ML NEB HHN SCH (16:00)
[2019-09-23] MEDS ORDERED: ONDANSETRON HCL 4MG TABLET PO SCH (17:15)
[2019-09-23] MEDS: AMLODIPINE 2.5MG TABLET PO SCH (21:48)
[2019-09-23] MEDS: FAMOTIDINE 20MG TABLET PO SCH (21:48)
[2019-09-24] VITALS: BP 149/55
[2019-09-24] MEDS: MORPHINE SULFATE 4 MG/ML CPJ (NOT FOR IM USE) IV PRN ×4 (01:21→18:05)
[2019-09-24 04:00] VITALS: BP 157/67
[2019-09-24] MEDS: CEFAZOLIN 1000MG PREMIX 50 ML IV SCH ×2 (05:57→13:36)
[2019-09-24] MEDS: CLONIDINE 0.1MG TABLET PO PRN (05:58)
[2019-09-24] MEDS: HYDROCODONE/APAP 7.5/325MG 1 TAB TABLET PO PRN ×2 (06:04→20:41)
[2019-09-24] MEDS: SODIUM CHLORIDE 0.9% INJ 3ML FLUSH IVF SCH ×2 (06:08→14:01)
[2019-09-24 08:00] VITALS: BP 135/53
[2019-09-24] MEDS ORDERED: HYDRALAZINE 20MG/ML VIAL IV PRN (08:15)
[2019-09-24] MEDS ORDERED: HYDRALAZINE 5 MG in SODIUM CHLORIDE 0.9% 50 ML IV PRN (08:15)
[2019-09-24] MEDS: CALCITRIOL 0.25MCG CAPSULE PO SCH (09:38)
[2019-09-24] MEDS: DONEPEZIL HCL 10MG TABLET PO SCH (09:38)
[2019-09-24] MEDS: FAMOTIDINE 20MG TABLET PO SCH ×2 (09:38→20:42)
[2019-09-24] MEDS: DULOXETINE HCL 60MG DR CAPSULE PO SCH (09:38)
[2019-09-24] MEDS: AMLODIPINE 2.5MG TABLET PO SCH (09:39)
[2019-09-24 12:00] VITALS: BP 134/51
[2019-09-24 16:00] VITALS: BP 126/49
[2019-09-24 20:00] VITALS: BP 165/55
[2019-09-24] MEDS: CARVEDILOL 6.25 MG TABLET PO SCH (20:42)
[2019-09-24] MEDS: AMLODIPINE 5MG TABLET PO SCH (20:45)
[2019-09-25] VITALS: BP 131/65
[2019-09-25] MEDS: MORPHINE SULFATE 4 MG/ML CPJ (NOT FOR IM USE) IV PRN ×4 (03:55→16:02)
[2019-09-25 04:00] VITALS: BP 152/51
[2019-09-25] MEDS: SODIUM CHLORIDE 0.9% INJ 3ML FLUSH IVF SCH ×3 (04:20→13:47)
[2019-09-25 08:00] VITALS: BP 136/55
[2019-09-25] MEDS: CALCITRIOL 0.25MCG CAPSULE PO SCH (09:42)
[2019-09-25] MEDS: DONEPEZIL HCL 10MG TABLET PO SCH (09:42)
[2019-09-25] MEDS: FAMOTIDINE 20MG TABLET PO SCH ×2 (09:42→21:38)
[2019-09-25] MEDS: DULOXETINE HCL 60MG DR CAPSULE PO SCH (09:42)
[2019-09-25] MEDS: CARVEDILOL 6.25 MG TABLET PO SCH (09:44)
[2019-09-25] MEDS: AMLODIPINE 5MG TABLET PO SCH ×2 (09:44→21:38)
[2019-09-25 12:00] VITALS: BP 148/50
[2019-09-25 20:00] VITALS: BP 145/55
[2019-09-25] MEDS: CARVEDILOL 12.5MG TABLET PO SCH (21:38)
[2019-09-25] MEDS: HYDROCODONE/APAP 7.5/325MG 1 TAB TABLET PO PRN (21:55)
[2019-09-26] VITALS: BP 101/56
[2019-09-26 04:00] VITALS: BP 144/52
[2019-09-26] MEDS: HYDROCODONE/APAP 7.5/325MG 1 TAB TABLET PO PRN ×4 (04:16→22:33)
[2019-09-26] MEDS: SODIUM CHLORIDE 0.9% INJ 3ML FLUSH IVF SCH ×4 (06:00→22:35)
[2019-09-26 08:00] VITALS: BP 132/54
[2019-09-26] MEDS: DONEPEZIL HCL 10MG TABLET PO SCH (09:11)
[2019-09-26] MEDS: CALCITRIOL 0.25MCG CAPSULE PO SCH (09:11)
[2019-09-26] MEDS: CARVEDILOL 12.5MG TABLET PO SCH ×2 (09:11→22:03)
[2019-09-26] MEDS: AMLODIPINE 5MG TABLET PO SCH ×2 (09:12→22:04)
[2019-09-26] MEDS: FAMOTIDINE 20MG TABLET PO SCH ×2 (09:12→22:03)
[2019-09-26] MEDS: DULOXETINE HCL 60MG DR CAPSULE PO SCH (09:12)
[2019-09-26 12:00] VITALS: BP 139/41
[2019-09-26 16:00] VITALS: BP 154/58
[2019-09-26] MEDS: BUDESONIDE 0.5MG/2ML NEB HHN SCH (17:52)
[2019-09-26] MEDS: HYDROCODONE/ACETAMINOPHEN 10/325MG TABLET PO PRN (17:54)
[2019-09-26] MEDS: IPRATROPIUM/ALBUTEROL 0.5-3(2.5)MG/3ML NEB HHN SCH (17:57)
[2019-09-26 20:00] VITALS: BP 133/55
[2019-09-27] VITALS: BP 136/49
[2019-09-27] MEDS: HYDROCODONE/ACETAMINOPHEN 10/325MG TABLET PO PRN ×2 (01:52→09:18)
[2019-09-27 04:00] VITALS: BP 135/51
[2019-09-27] MEDS: BUDESONIDE 0.5MG/2ML NEB HHN SCH (08:32)
[2019-09-27] MEDS: IPRATROPIUM/ALBUTEROL 0.5-3(2.5)MG/3ML NEB HHN SCH (08:32)
[2019-09-27] MEDS: DULOXETINE HCL 60MG DR CAPSULE PO SCH (09:18)
[2019-09-27] MEDS: CALCITRIOL 0.25MCG CAPSULE PO SCH (09:18)
[2019-09-27] MEDS: FAMOTIDINE 20MG TABLET PO SCH (09:18)
[2019-09-27] MEDS: AMLODIPINE 5MG TABLET PO SCH (09:19)
[2019-09-27] MEDS: DONEPEZIL HCL 10MG TABLET PO SCH (09:19)
[2019-09-27] MEDS: CARVEDILOL 12.5MG TABLET PO SCH (09:19)
[2019-09-27 10:36] VITALS: BP 170/46
== END 2019-09-27 10:55 | disposition home health service (06) | DRG 471 ==
LOC: ER 13:11 → 6EST 17:41 → EDBEDREQ 17:43 → ENRESERV 21:37 → MICUSO 09-22 15:49 → 6EST 09-23 16:53
PROVIDERS: ADMIT Internal Medicine; ATTEND Internal Medicine
PROC: 0RG2071 Fusion of 2 or more Cervical Vertebral Joints with Autologous Tissue Substitute, Posterior Approach, Posterior Column, Open Approach (ICD-10-PCS; principal; 2019-09-22)
PROC: 0RB30ZZ Excision of Cervical Vertebral Disc, Open Approach (ICD-10-PCS; 2019-09-22)
PROC: 00NW0ZZ Release Cervical Spinal Cord, Open Approach (ICD-10-PCS; 2019-09-22)
PROC: 01N10ZZ Release Cervical Nerve, Open Approach (ICD-10-PCS; 2019-09-22)
PROC: BR101ZZ Fluoroscopy of Cervical Spine using Low Osmolar Contrast (ICD-10-PCS; 2019-09-22)
DX: M48.02 Spinal stenosis, cervical region (principal); G82.50 Quadriplegia, unspecified; C79.51 Secondary malignant neoplasm of bone; N17.9 Acute kidney failure, unspecified; G95.20 Unspecified cord compression; C79.11 Secondary malignant neoplasm of bladder; C79.49 Secondary malignant neoplasm of other parts of nervous system; J84.9 Interstitial pulmonary disease, unspecified; M47.12 Other spondylosis with myelopathy, cervical region; K21.9 Gastro-esophageal reflux disease without esophagitis; G89.4 Chronic pain syndrome; E78.5 Hyperlipidemia, unspecified; D63.8 Anemia in other chronic diseases classified elsewhere; D50.9 Iron deficiency anemia, unspecified; C61 Malignant neoplasm of prostate; I07.1 Rheumatic tricuspid insufficiency; I27.20 Pulmonary hypertension, unspecified; R26.9 Unspecified abnormalities of gait and mobility; M47.22 Other spondylosis with radiculopathy, cervical region; J44.9 Chronic obstructive pulmonary disease, unspecified; I11.0 Hypertensive heart disease with heart failure; E11.9 Type 2 diabetes mellitus without complications; F03.90 Unspecified dementia, unspecified severity, without behavioral disturbance, psychotic disturbance, mood disturbance, and anxiety; I50.9 Heart failure, unspecified; M48.061 Spinal stenosis, lumbar region without neurogenic claudication; R13.10 Dysphagia, unspecified; Z87.891 Personal history of nicotine dependence; Z90.49 Acquired absence of other specified parts of digestive tract; Z90.79 Acquired absence of other genital organ(s); Z99.81 Dependence on supplemental oxygen; Z93.3 Colostomy status; Z79.899 Other long term (current) drug therapy
CPT/HCPCS: 36415; 36600; 71045; 72040; 72141; 72146; 72148; 73030; 73060; 73090; 73502; 76000; 80048; 80053; 81003; 82375; 82805; 84132; 85025; 86850; 86900; 88304; 88311; 90686; 92610; 93005; 93306; 93970; 94002; 94640; 95925; 95926; 95928; 95929; 96374; 97162; 97164; 97166; 97168; 97530; 99285; C1713; J0690; J1100; J1170; J1200; J1650; J2250; J2270; J2405; J2704; J2710; J3010; J3490; J7121; J7626; L0172